=== PATIENT | female | born 1985 | race Two or more races ===

== ENCOUNTER 2017-12-27 17:46 | Emergency (ER) | payer BC ==
[~2017-12-27] VITALS: Ht 154.9 cm; Wt 54.4 kg
[2017-12-27 18:14] LABS: *URINE HCG, QUAL POSITIVE (NEGATIVE)
[2017-12-27 18:17] LABS: *BILIRUBIN,URIN NEGATIVE (NEGATIVE); *BLOOD, URINE Trace-intact (NEGATIVE); *CLARITY,URINE SLIGHTLY CLOUDY (CLEAR); *COLOR,URINE YELLOW (YELLOW); *KETONES,URINE NEGATIVE (NEGATIVE); *PROTEIN,URINE NEGATIVE (NEGATIVE); *UROBILINOGEN,URINE 0.2 E.U./dl (NORMAL); LEUKOCYTE ESTERASE ,URINE 1+ (NEGATIVE); NITRITE, URINE NEGATIVE (NEGATIVE); PH,URINE 7.5 (5.0-8.0); UGLUCOSE NEGATIVE (NEGATIVE)
[2017-12-27 18:29] LABS: BACTERIA,URINE NONE SEEN /HPF (NONE SEEN); SQUAMOUS EPITHELIAL CELL,UR FEW /HPF (NONE SEEN)
[2017-12-27 19:08] LABS: BASOPHILS # (AUTO) 0.1 K/uL (0.0-8.0); BASOPHILS % (AUTO) 0.5 % (0.0-2.0); EOSINOPHILS % (AUTO) 0.5 % (0.0-7.0); HEMATOCRIT 33.5 % (31.2-41.9); HEMOGLOBIN 10.3 g/dL (10.9-14.3); LYMPHOCYTES # (AUTO) 2.6 K/uL (20.0-40.0); LYMPHOCYTES % (AUTO) 25.4 % (20.5-51.5); MEAN CORPUSCULAR HEMOGLOBIN 20.9 uug (24.7-32.8); MEAN CORPUSCULAR HGB CONC 31 g/dL (32.3-35.6); MEAN CORPUSCULAR VOLUME 67.7 fL (75.5-95.3); MONOCYTES # (AUTO) 0.7 K/uL (2.0-10.0); MONOCYTES % (AUTO) 6.7 % (0.0-11.0); NEUTROPHILS # (AUTO) 6.7 K/uL (1.8-8.9); NEUTROPHILS % (AUTO) 66.9 % (38.5-71.5); PLATELET COUNT (AUTO) 193 K/uL (179-408); RED BLOOD CELL COUNT(AUTO) 4.95 MIL/uL (3.63-4.92)
--- NOTE | 2017-12-27 19:16 | NUR ---
REPORT TAKEN FROM NEY CHATMAN. ASSUMING PT CARE AT THIS TIME.
--- NOTE | 2017-12-27 19:19 | NUR ---
CHAPERONING AT PT BEDSIDE FOR US.
[2017-12-27 19:54] LABS: LYMPHOCYTES % (MANUAL) 18 % (20-40); MONOCYTES % (MANUAL) 4 % (2-10); NEUTROPHILS % (MANUAL) 78 % (42-75)
--- NOTE | 2017-12-27 20:06 | NUR ---
PT AMBULATED TO AND FROM BATHROOM W/ STEADY GAIT. DENIES SOB OR DIZZINESS.
--- NOTE | 2017-12-27 20:28 | NUR ---
Patient discharged to home in stable conditon. Written and verbal after care instructions given. Patient verbalizes understanding of instructions. PT provided copy of labs and US report, and given information to follow up with specialist.
[2017-12-27 20:30] VITALS: BP 122/70
== END 2017-12-27 20:30 | disposition home or self-care (01) ==
LOC: ER 17:47
DX: O20.0 Threatened abortion (principal); Z3A.01 Less than 8 weeks gestation of pregnancy
CPT/HCPCS: 36415; 76856; 84703; 85025; A4663

== ENCOUNTER 2017-12-29 22:04 | Emergency (ER) | payer BC ==
[~2017-12-29] VITALS: Ht 154.9 cm; Wt 54.4 kg
--- NOTE | 2017-12-29 22:26 | NUR ---
PT IN BED. PT'S VISITOR AT BEDSIDE. PT PRESENTED TO ER WITH VAGINAL BLEEDING X 5 DAYS. PT STATES THAT SHE IS 6 WKS PREG. PT STATES THAT IN ADDITION, SHE IS EXPERIENCING 7/10 ABDOMINAL/PELVIC PAIN.
[2017-12-29] MEDS ORDERED: IV NORMAL SALINE 1000 ML BAG IV ONE (22:30)
[2017-12-29 22:53] LABS: BASOPHILS # (AUTO) 0.1 K/uL (0.0-8.0); BASOPHILS % (AUTO) 0.5 % (0.0-2.0); EOSINOPHILS % (AUTO) 0.4 % (0.0-7.0); HEMATOCRIT 33.2 % (31.2-41.9); HEMOGLOBIN 10.2 g/dL (10.9-14.3); LYMPHOCYTES # (AUTO) 2.6 K/uL (20.0-40.0); LYMPHOCYTES % (AUTO) 21.6 % (20.5-51.5); MEAN CORPUSCULAR HEMOGLOBIN 20.7 uug (24.7-32.8); MEAN CORPUSCULAR HGB CONC 31 g/dL (32.3-35.6); MEAN CORPUSCULAR VOLUME 67.3 fL (75.5-95.3); MONOCYTES # (AUTO) 0.9 K/uL (2.0-10.0); MONOCYTES % (AUTO) 7.3 % (0.0-11.0); NEUTROPHILS # (AUTO) 8.5 K/uL (1.8-8.9); NEUTROPHILS % (AUTO) 70.2 % (38.5-71.5); PLATELET COUNT (AUTO) 186 K/uL (179-408); RED BLOOD CELL COUNT(AUTO) 4.94 MIL/uL (3.63-4.92)
--- NOTE | 2017-12-29 23:15 | NUR ---
PT IN BED. PT'S VISITOR AT BEDSIDE. PT IS WATCHING TV AND RECEIVING IV FLUID BOLUS. PELVIC EXAM WELL TOLERATED. NO SIGNS OF DISTRESS WITNESSED BY NURSE OR EXPRESSED BY PT AT THIS TIME.
[2017-12-29 23:20] LABS: ALANINE AMINOTRANSFERASE 20 U/L (14-59); ALKALINE PHOSPHATASE 81 U/L (50-136); ASPARTATE AMINOTRANSFERASE 13 U/L (15-37); BILIRUBIN,DIRECT < 0.1 mg/dL (0.0-0.2); BILIRUBIN,TOTAL 0.2 mg/dL (0.2-1.0); CARBON DIOXIDE 22 mmol/L (21-32); CHLORIDE 103 mmol/L (98-107); CREATININE 0.7 mg/dL (0.6-1.3); GLUCOSE 96 mg/dL (74-106); POTASSIUM 3.5 mmol/L (3.5-5.1); TOTAL PROTEIN, SERUM 7.4 g/dL (6.4-8.2); UREA NITROGEN, BLOOD 15 mg/dL (7-18)
--- NOTE | 2017-12-29 23:30 | NUR ---
ULTRASOUND AT BEDSIDE.
--- NOTE | 2017-12-29 23:50 | NUR ---
MD LAWRENCE AT BEDSIDE. US WELL TOLERATED.
--- NOTE | 2017-12-30 | NUR ---
Patient discharged to home in stable conditon. Written and verbal after care instructions given. Patient verbalizes understanding of instructions. Patient reported reduced pain and anxiety pertaining to c/o abdominal/pelvic pain. Patient had peripheral IV line removed from LT arm. Patient able to ambulate unassisted with steady gait. Patient left with all personal belongings.
[2017-12-30 00:03] LABS: BAND % (MANUAL) 1 % (0-10); EOSINOPHILS % (MANUAL) 1 % (0-8); LYMPHOCYTES % (MANUAL) 18 % (20-40); MONOCYTES % (MANUAL) 3 % (2-10); NEUTROPHILS % (MANUAL) 77 % (42-75)
[2017-12-30 00:10] VITALS: BP 113/49
== END 2017-12-30 | disposition home or self-care (01) ==
LOC: ER 22:07
DX: O03.9 Complete or unspecified spontaneous abortion without complication (principal)
CPT/HCPCS: 36415; 76856; 85025; 85730; 86850; 86900; 86901; A4663; J7030